=== PATIENT | male | born 1970 | race Caucasian/White ===

== ENCOUNTER → 2018-12-03 | Outpatient (CLI) | payer BC ==
[2018-12-03 15:15] LABS: HEMATOCRIT 50.2 % (42.0-52.0); HEMOGLOBIN 16.4 g/dL (13.5-18.0); MEAN CELL VOLUME 97 fl (78-100); MEAN CORPUSCULAR HEMOGLOBIN 32 pg (27-31); MEAN CORPUSCULAR HGB CONC 33 g/dL (33-37); MEAN PLATELET VOLUME 10.6 fl (7.4-10.4); PLATELET COUNT 270 K/mm3 (130-400); RED BLOOD COUNT 5.18 M/mm3 (4.20-5.60); RED CELL DISTRIBUTION WIDTH 12.7 % (11.5-14.5); WHITE BLOOD COUNT 5.9 K/mm3 (4.8-10.8)
[2018-12-03 15:17] LABS: ALBUMIN 4.4 g/dL (3.5-5.0); CALCIUM 9.6 mg/dL (8.4-10.2); POTASSIUM 4.2 mmol/L (3.6-5.0); TOTAL BILIRUBIN 0.4 mg/dL (0.2-1.3); TOTAL PROTEIN 7.6 g/dL (6.3-8.2)
[2018-12-03 17:01] LABS: LYMPHOCYTE 29 % (20-51); MONOCYTE 10 % (3-10); NEUTROPHILS 57 % (42-75)
== END ==
LOC: LAB 14:36
PROVIDERS: Internal Medicine
DX: Z00.00 Encounter for general adult medical examination without abnormal findings (principal)

== ENCOUNTER → 2018-12-20 | Outpatient (CLI) | payer BC ==
[2018-12-21 06:36] LABS: C-REACTIVE PROTEIN XXX
[2018-12-22 01:27] LABS: ANA SCREEN with REFLEX Negative (Negative)
== END ==
LOC: LAB 09:14
PROVIDERS: Internal Medicine
DX: K14.0 Glossitis (principal)

== ENCOUNTER 2019-04-02 18:38 | Emergency (ER) | payer BC ==
[~2019-04-02] VITALS: Ht 182.9 cm; Wt 84.1 kg
[~2019-04-02 18:38] MED LIST: NORCO 325 MG-51 TA1 PO
[2019-04-02] MEDS ORDERED: CYCLOBENZAPRINE10 M1 PO (19:59)
[2019-04-02] MEDS ORDERED: KETOROLAC10 MG PO (19:59)
[2019-04-02 20:05] VITALS: BP 134/72
== END 2019-04-02 20:05 | disposition home or self-care (01) ==
LOC: ED 18:38
DX: S22.42XA Multiple fractures of ribs, left side, initial encounter for closed fracture (principal); W17.89XA Other fall from one level to another, initial encounter; Y92.009 Unspecified place in unspecified non-institutional (private) residence as the place of occurrence of the external cause

== ENCOUNTER → 2020-12-05 | Outpatient (CLI) | payer BC ==
[~2020-12-05] MED LIST changes: +CYCLOBENZAPRINE10 M1 PO; +KETOROLAC10 MG PO
[2020-12-05 16:29] LABS: ALBUMIN 4.4 g/dL (3.5-5.0); POTASSIUM 4.1 mmol/L (3.5-5.1)
[2020-12-05 16:30] LABS: CALCIUM 9.4 mg/dL (8.3-10.5)
[2020-12-05 16:32] LABS: TOTAL PROTEIN 7.5 g/dL (6.4-8.3)
[2020-12-05 16:33] LABS: TOTAL BILIRUBIN 0.5 mg/dL (0.2-1.2)
== END ==
LOC: LAB 16:03
PROVIDERS: Nurse Practitioner
DX: K13.79 Other lesions of oral mucosa (principal)

== ENCOUNTER → 2022-03-07 | Outpatient (CLI) | payer BC ==
[2022-03-07 16:14] LABS: BASO # 0.03 K/mm3 (0.02-0.10); EOS # 0.25 K/mm3 (0.04-0.40); EOS % 2.9 % (0.0-4.0); HEMATOCRIT 48.5 % (42.0-52.0); HEMOGLOBIN 16.2 g/dL (13.5-18.0); LYMPH# 2.03 K/mm3 (1.50-4.00); MEAN CELL VOLUME 97 fl (78-100); MEAN CORPUSCULAR HEMOGLOBIN 33 pg (27-31); MEAN CORPUSCULAR HGB CONC 33 g/dL (33-37); MEAN PLATELET VOLUME 10.2 fl (7.4-10.4); MONO # 0.94 K/mm3 (0.20-0.80); NEU # 5.28 K/mm3 (1.40-6.50); PLATELET COUNT 252 K/mm3 (130-400); RED BLOOD COUNT 4.99 M/mm3 (4.20-5.60); RED CELL DISTRIBUTION WIDTH 12.3 % (11.5-14.5); WHITE BLOOD COUNT 8.5 K/mm3 (4.8-10.8)
[2022-03-07 16:23] LABS: POTASSIUM 3.8 mmol/L (3.5-5.1); SODIUM 138 mmol/L (136-145)
[2022-03-07 16:24] LABS: ALBUMIN 4.4 g/dL (3.5-5.0)
[2022-03-07 16:25] LABS: CALCIUM 9.8 mg/dL (8.3-10.5)
[2022-03-07 16:26] LABS: GLUCOSE 125 mg/dL (75-110); TOTAL PROTEIN 7.4 g/dL (6.4-8.3)
[2022-03-07 16:27] LABS: CARBON DIOXIDE 23 mmol/L (22-29)
[2022-03-07 16:28] LABS: TOTAL BILIRUBIN 0.3 mg/dL (0.2-1.2)
[2022-03-07 16:31] LABS: AST-SGOT 17 U/L (5-34)
[2022-03-07 16:33] LABS: ALT/SGPT 35 U/L (0-55)
[2022-03-07 17:52] LABS: ERYTHROCYTE SEDIMENTATION RATE 0 mm/hr (0-15)
== END ==
LOC: LAB 15:51
PROVIDERS: Internal Medicine
DX: Z00.00 Encounter for general adult medical examination without abnormal findings (principal); Z12.5 Encounter for screening for malignant neoplasm of prostate; E55.9 Vitamin D deficiency, unspecified; K90.9 Intestinal malabsorption, unspecified